=== PATIENT | male | born 1945 | race Caucasian/White ===

== ENCOUNTER 2021-04-25 10:23 | Day surgery (SDC) | payer OTHER, BC ==
[2021-04-25 11:10] VITALS: TEMP 97.9; BMI 24.7
[2021-04-25] MEDS ORDERED: PROPOFOL 20 ML ONE ×2 (11:11)
[2021-04-25 13:29] VITALS: BP 111/63; PULSE 68
== END 2021-04-25 12:50 | disposition home or self-care (01) ==
LOC: FASU-ENDO 10:23
PROVIDERS: ATTEND Internal Medicine Gastroenterology
PROC: 0DB68ZX Excision of Stomach, Via Natural or Artificial Opening Endoscopic, Diagnostic (ICD-10-PCS; 2021-04-25)
PROC: 0D748DZ Dilation of Esophagogastric Junction with Intraluminal Device, Via Natural or Artificial Opening Endoscopic (ICD-10-PCS; 2021-04-25)
PROC: 0DJD8ZZ Inspection of Lower Intestinal Tract, Via Natural or Artificial Opening Endoscopic (ICD-10-PCS; principal; 2021-04-25 11:28)
DX: Z86.010 Personal history of colon polyps (principal); K29.50 Unspecified chronic gastritis without bleeding; K31.7 Polyp of stomach and duodenum; R13.10 Dysphagia, unspecified; R12 Heartburn
CPT/HCPCS: 43239; 43450; G0105; 88305-TC; 88342-TC